=== PATIENT | male | born 1940 | race Caucasian/White ===

== ENCOUNTER 2019-06-18 15:42 | Inpatient (IN) | payer MEDICARE, MEDICAID ==
[~2019-06-18] VITALS: Ht 167.6 cm; Wt 74.9 kg
[2019-06-18] MEDS ORDERED: SODIUM CHLORIDE 0.9% 1,000 ML IV ONE (18:36)
[2019-06-18] MEDS ORDERED: ONDANSETRON HCL 4MG/2ML INJ IV STA (18:36)
[2019-06-18 18:57] LABS: HEMATOCRIT. 38.5 % (42.0-52.0); HEMOGLOBIN. 13.2 g/dL (14.0-18.0); MEAN CORPUSCULAR VOLUME 90.3 fL (80.0-94.0); MEAN PLATELET VOLUME 8.6 fl (7.4-10.4); PLATELET 168 x1000/uL (130-400); RED BLOOD CELL COUNT 4.26 mill/uL (4.7-6.1); RED CELL DISTRIBUTION WIDTH 14.2 % (11.6-14.6)
[2019-06-18 19:03] LABS: CHLORIDE 104 mEq/L (98-107)
[2019-06-18 19:07] LABS: ETHANOL BLOOD < 10 mg/dL
[2019-06-18 19:25] LABS: PLATELET ESTIMATE NORMAL
[2019-06-18 20:55] LABS: CLARITY URINE CLEAR (CLEAR); COLOR URINE YELLOW (YELLOW); KETONES URINE NEGATIVE (NEGATIVE); LEUKOCYTE ESTERASE URINE TRACE (NEGATIVE); NITRITE URINE NEGATIVE (NEGATIVE); OCCULT BLOOD URINE 1+ (NEGATIVE); PH URINE 5.5 (4.5-8.0); PROTEIN URINE 2+ (NEGATIVE); SPECIFIC GRAVITY URINE 1.023 (1.005-1.030); UROBILINOGEN URINE 0.2 E.U./dL (0.2-1.0)
[2019-06-18] MEDS ORDERED: CEFTRIAXONE 1 G PREMIX 50 ML IV ONE (21:00)
[2019-06-18] MEDS ORDERED: VANCOMYCIN 1 G PREMIX 200 ML IV ONE (21:00)
[2019-06-18 21:10] LABS: *AMPHETAMINES SCREEN URINE NEGATIVE (NEGATIVE); *BARBITURATES SCREEN URINE NEGATIVE (NEGATIVE)
[2019-06-18 21:11] LABS: *BENZODIAZEPINES SCREEN URINE NEGATIVE (NEGATIVE); *COCAINE SCREEN URINE NEGATIVE (NEGATIVE); CANNABINOID URINE SCREEN NEGATIVE (NEGATIVE); METHADONE URINE SCREEN NEGATIVE (NEGATIVE); OPIATES URINE SCREEN NEGATIVE (NEGATIVE); PHENCYCLIDINE URINE SCREEN NEGATIVE (NEGATIVE)
[2019-06-18] MEDS ORDERED: SODIUM CHLORIDE 0.9% 500 ML IV ONE (22:45)
[2019-06-18] MEDS ORDERED: DOCUSATE SODIUM 100MG CAPSULE PO PRN (23:30)
[2019-06-18] MEDS ORDERED: ACETAMINOPHEN 325MG TABLET PO PRN (23:30)
[2019-06-18] MEDS ORDERED: ONDANSETRON HCL 4MG/2ML INJ IV PRN (23:30)
[2019-06-18] MEDS ORDERED: CLONIDINE 0.1MG TABLET PO PRN (23:30)
[2019-06-18] MEDS ORDERED: GUAIFENESIN 200MG/10ML SUGAR FREE UDC PO PRN (23:30)
[2019-06-18] MEDS ORDERED: ENOXAPARIN 40MG/0.4ML SYR SUBCUT SCH (23:30)
[2019-06-18] MEDS ORDERED: HYDROCODONE/ACETAMINOPHEN 5/325MG TABLET PO PRN (23:30)
[2019-06-19] VITALS (7 sets, daily range): BP systolic 92–145; BP diastolic 54–76
[2019-06-19] MEDS: SODIUM CHLORIDE 0.45% 1,000 ML IV SCH ×2 (03:51→16:45)
[2019-06-19 09:06] LABS: HEMATOCRIT. 34.7 % (42.0-52.0); HEMOGLOBIN. 12.1 g/dL (14.0-18.0); MEAN CORPUSCULAR VOLUME 89.3 fL (80.0-94.0); MEAN PLATELET VOLUME 9.1 fl (7.4-10.4); PLATELET 149 x1000/uL (130-400); RED BLOOD CELL COUNT 3.89 mill/uL (4.7-6.1); RED CELL DISTRIBUTION WIDTH 14.2 % (11.6-14.6)
[2019-06-19] MEDS: METOPROLOL TARTRATE 25MG TABLET PO SCH ×2 (09:09→21:00)
[2019-06-19] MEDS: ENOXAPARIN 40MG/0.4ML SYR SUBCUT SCH (09:09)
[2019-06-19 09:35] LABS: CHLORIDE 108 mEq/L (98-107)
[2019-06-19] MEDS ORDERED: DEXTROSE 50% WATER 50ML SYRINGE IV PRN (11:15)
[2019-06-19] MEDS: BLOOD SUGAR DIAGNOSTIC STRIP TEST SCH ×3 (11:45→21:41)
[2019-06-19] MEDS: VANCOMYCIN 1 G PREMIX 200 ML IV SCH (11:55)
[2019-06-19] MEDS: INSULIN LISPRO 100 UNITS/ML SUBCUT SCH ×3 (11:59→21:42)
[2019-06-19 14:03] LABS: PLATELET ESTIMATE NORMAL
[2019-06-19] MEDS ORDERED: VANCOMYCIN 1250MG in DEXTROSE 5% WATER 250ML IV SCH (17:00)
[2019-06-20] VITALS: BP 98/56
[2019-06-20 04:00] VITALS: BP 91/61
[2019-06-20] MEDS: SODIUM CHLORIDE 0.45% 1,000 ML IV SCH ×2 (04:13→18:43)
[2019-06-20] MEDS: BLOOD SUGAR DIAGNOSTIC STRIP TEST SCH ×4 (06:18→21:54)
[2019-06-20] MEDS: INSULIN LISPRO 100 UNITS/ML SUBCUT SCH ×4 (06:18→22:15)
[2019-06-20 08:00] VITALS: BP_SYST 128; BP_SYST 139; BP_SYST 142; BP_DIAS 49; BP_DIAS 56; BP_DIAS 62
[2019-06-20] MEDS: ENOXAPARIN 40MG/0.4ML SYR SUBCUT SCH (08:50)
[2019-06-20] MEDS: METOPROLOL TARTRATE 25MG TABLET PO SCH ×2 (08:50→22:15)
[2019-06-20 12:00] VITALS: BP 173/59
[2019-06-20] MEDS: VANCOMYCIN 1 G PREMIX 200 ML IV SCH (12:18)
[2019-06-20 16:00] VITALS: BP 117/46
[2019-06-20 20:00] VITALS: BP 135/62
[2019-06-21] VITALS: BP 136/55
[2019-06-21 04:00] VITALS: BP_SYST 100; BP_SYST 145; BP_DIAS 45; BP_DIAS 47
[2019-06-21] MEDS: BLOOD SUGAR DIAGNOSTIC STRIP TEST SCH ×2 (06:45→12:09)
[2019-06-21] MEDS: INSULIN LISPRO 100 UNITS/ML SUBCUT SCH ×2 (07:15→12:54)
[2019-06-21 08:00] VITALS: BP_SYST 118; BP_SYST 141; BP_SYST 95; BP_DIAS 61; BP_DIAS 62; BP_DIAS 63
[2019-06-21] MEDS: SODIUM CHLORIDE 0.45% 1,000 ML IV SCH (09:10)
[2019-06-21] MEDS: ENOXAPARIN 40MG/0.4ML SYR SUBCUT SCH (09:10)
[2019-06-21] MEDS: METOPROLOL TARTRATE 25MG TABLET PO SCH (09:10)
[2019-06-21] MEDS: VANCOMYCIN 1 G PREMIX 200 ML IV SCH (12:01)
[2019-06-21 14:01] VITALS: BP 141/63
[2019-06-22] MEDS ORDERED: VANCOMYCIN 1 G PREMIX 200 ML IV SCH
== END 2019-06-21 14:53 | disposition home health service (06) | DRG 683 ==
LOC: ER 15:42 → EDSEX 15:42 → 5WST 22:42 → EDBEDREQ 22:51 → ENRESERV 23:07
PROVIDERS: ADMIT Hospitalist; ATTEND Hospitalist
DX: N17.9 Acute kidney failure, unspecified (principal); L03.113 Cellulitis of right upper limb; E11.65 Type 2 diabetes mellitus with hyperglycemia; I11.0 Hypertensive heart disease with heart failure; I50.9 Heart failure, unspecified; I95.1 Orthostatic hypotension; Z86.73 Personal history of transient ischemic attack (TIA), and cerebral infarction without residual deficits
CPT/HCPCS: 36415; 71045; 80053; 80202; 80305; 80320; 81003; 82962; 83036; 83605; 83880; 84145; 84484; 85025; 92610; 93005; 96365; 96367; 96375; 97116; 97162; 99291; J0696; J1650; J1815; J2405; J3370; J7030; J7060; G0480

== ENCOUNTER 2019-08-27 12:53 | Inpatient (IN) | payer MEDICAID, MEDICARE ==
[~2019-08-27] VITALS: Ht 175.3 cm; Wt 86.2 kg
[2019-08-27] MEDS ORDERED: PIPERACILLIN/TAZ 3.375G PREMIX 50 ML IV ONE (14:45)
[2019-08-27] MEDS ORDERED: VANCOMYCIN 1 G PREMIX 200 ML IV ONE (14:45)
[2019-08-27 15:27] LABS: BASOPHILS % 0.6 % (0.0-2.0); EOSINOPHILS % 2.7 % (0.0-5.0); HEMATOCRIT. 41.9 % (42.0-52.0); HEMOGLOBIN. 14.2 g/dL (14.0-18.0); LYMPHOCYTES % 32.1 % (20.0-50.0); MEAN CORPUSCULAR HEMOGLOBIN 30.8 pg (28.0-32.0); MEAN CORPUSCULAR VOLUME 91.1 fL (80.0-94.0); MEAN PLATELET VOLUME 8.9 fl (7.4-10.4); MONOCYTES % 11.8 % (2.0-8.0); NEUTROPHILS % 52.8 % (40.0-76.0); PLATELET 169 x1000/uL (130-400); RED CELL DISTRIBUTION WIDTH 14.8 % (11.6-14.6)
[2019-08-27 15:31] LABS: PROTHROMBIN TIME 10.7 sec (9.6-11.0)
[2019-08-27 15:35] LABS: CHLORIDE 108 mEq/L (98-107)
[2019-08-27] MEDS ORDERED: SODIUM CHLORIDE 0.9% 1000ML BAG (SEPSIS BOLUS) IV ONE (16:00)
[2019-08-27 17:02] LABS: CLARITY URINE CLEAR (CLEAR); COLOR URINE YELLOW (YELLOW); KETONES URINE NEGATIVE (NEGATIVE); LEUKOCYTE ESTERASE URINE NEGATIVE (NEGATIVE); NITRITE URINE NEGATIVE (NEGATIVE); OCCULT BLOOD URINE NEGATIVE (NEGATIVE); PROTEIN URINE NEGATIVE (NEGATIVE); UROBILINOGEN URINE 0.2 E.U./dL (0.2-1.0)
[2019-08-27] MEDS ORDERED: MAGNESIUM/ALUMINUM HYDROXIDE/SIMETHICONE 30ML UDC PO PRN (17:30)
[2019-08-27] MEDS ORDERED: LORAZEPAM 0.5MG TABLET PO PRN (17:30)
[2019-08-27] MEDS ORDERED: DOCUSATE SODIUM 100MG CAPSULE PO PRN (17:30)
[2019-08-27] MEDS ORDERED: ACETAMINOPHEN 325MG TABLET PO PRN (17:30)
[2019-08-27] MEDS ORDERED: HYDROCODONE/ACETAMINOPHEN 5/325MG TABLET PO PRN (17:30)
[2019-08-27] MEDS ORDERED: IPRATROPIUM/ALBUTEROL 0.5-3(2.5)MG/3ML NEB NEB PRN (17:30)
[2019-08-27] MEDS ORDERED: GUAIFENESIN 200MG/10ML SUGAR FREE UDC PO PRN (17:30)
[2019-08-27] MEDS ORDERED: DEXTROSE 50% WATER 50ML SYRINGE IV PRN (17:30)
[2019-08-27] MEDS ORDERED: NA PHOS,M-B/NA PHOS,DI-BA ENEMA 118ML PR PRN (17:30)
[2019-08-27] MEDS ORDERED: ONDANSETRON HCL 4MG/2ML INJ IV PRN (17:30)
[2019-08-27] MEDS ORDERED: ACETAMINOPHEN 650MG SUPP PR PRN ×2 (17:30)
[2019-08-27] MEDS ORDERED: DIPHENHYDRAMINE 50MG/ML VIAL IV PRN (17:30)
[2019-08-27] MEDS ORDERED: INSULIN LISPRO 100 UNITS/ML SUBCUT SCH (18:20)
[2019-08-27] MEDS ORDERED: LEVOFLOXACIN 500MG PREMIX 100 ML IV NR (19:30)
[2019-08-27] MEDS: SODIUM CHLORIDE 0.45% 1,000 ML IV SCH (19:42)
[2019-08-27] MEDS ORDERED: SODIUM CHLORIDE 0.9% 1,000 ML IV ONE ×2 (19:48→21:47)
[2019-08-27] MEDS: FAMOTIDINE 20MG TABLET PO SCH (21:00)
[2019-08-27] MEDS: BLOOD SUGAR DIAGNOSTIC STRIP TEST SCH (21:00)
[2019-08-27] MEDS ORDERED: NOREPINEPHRINE 4MG/250ML PMX 250 ML IV PRN (21:30)
[2019-08-28 05:31] LABS: BASOPHILS % 0.5 % (0.0-2.0); EOSINOPHILS % 2.7 % (0.0-5.0); HEMATOCRIT. 37.6 % (42.0-52.0); HEMOGLOBIN. 12.9 g/dL (14.0-18.0); MEAN CORPUSCULAR HEMOGLOBIN 31.4 pg (28.0-32.0); MEAN CORPUSCULAR VOLUME 91.3 fL (80.0-94.0); MEAN PLATELET VOLUME 8.7 fl (7.4-10.4); MONOCYTES % 11.9 % (2.0-8.0); NEUTROPHILS % 57.9 % (40.0-76.0); PLATELET 129 x1000/uL (130-400); RED BLOOD CELL COUNT 4.12 mill/uL (4.7-6.1)
[2019-08-28 05:39] LABS: CHLORIDE 116 mEq/L (98-107)
[2019-08-28 05:50] LABS: HDL CHOLESTEROL 35 mg/dL (40-59); LDL CHOLESTEROL 115 mg/dL (5-100); T4 FREE 1.18 ng/dL (0.76-1.46)
[2019-08-28] MEDS: BLOOD SUGAR DIAGNOSTIC STRIP TEST SCH ×4 (09:38→20:02)
[2019-08-28] MEDS: CLONIDINE 0.1MG TABLET PO PRN ×2 (14:03→20:33)
[2019-08-28] MEDS ORDERED: METF-416 MT (15:42)
[2019-08-28] MEDS ORDERED: LISI-604 MT (15:42)
[2019-08-28] MEDS ORDERED: MECL-159 MT (15:42)
[2019-08-28] MEDS ORDERED: METO25TA6 MT (15:42)
[2019-08-28 16:00] VITALS: BP 162/51
[2019-08-28 16:15] VITALS: BP 148/68
[2019-08-28] MEDS: ENOXAPARIN 40MG/0.4ML SYR SUBCUT SCH (16:22)
[2019-08-28] MEDS: INSULIN LISPRO 100 UNITS/ML SUBCUT SCH ×2 (16:29→20:02)
[2019-08-28] MEDS: VANCOMYCIN 1250MG in DEXTROSE 5% WATER 250ML IV SCH (17:04)
[2019-08-28] MEDS: LEVOFLOXACIN 500MG PREMIX 100 ML IV SCH (19:54)
[2019-08-28] MEDS: FAMOTIDINE 20MG TABLET PO SCH (19:55)
[2019-08-28 20:00] VITALS: BP 166/67
[2019-08-28] MEDS ORDERED: LEVOFLOXACIN 500MG PREMIX 100 ML IV SCH (20:00)
[2019-08-29] VITALS (8 sets, daily range): BP systolic 97–161; BP diastolic 46–102
[2019-08-29 00:22] LABS: *AMPHETAMINES SCREEN URINE NEGATIVE (NEGATIVE); *BARBITURATES SCREEN URINE NEGATIVE (NEGATIVE); *BENZODIAZEPINES SCREEN URINE NEGATIVE (NEGATIVE); *COCAINE SCREEN URINE NEGATIVE (NEGATIVE); CANNABINOID URINE SCREEN NEGATIVE (NEGATIVE); OPIATES URINE SCREEN NEGATIVE (NEGATIVE); PHENCYCLIDINE URINE SCREEN NEGATIVE (NEGATIVE)
[2019-08-29 00:23] LABS: METHADONE URINE SCREEN NEGATIVE (NEGATIVE)
[2019-08-29] MEDS: SODIUM CHLORIDE 0.45% 1,000 ML IV SCH ×2 (00:38→11:01)
[2019-08-29] MEDS: INSULIN LISPRO 100 UNITS/ML SUBCUT SCH ×4 (06:41→21:16)
[2019-08-29] MEDS: BLOOD SUGAR DIAGNOSTIC STRIP TEST SCH ×4 (06:41→21:18)
[2019-08-29] MEDS: ENOXAPARIN 40MG/0.4ML SYR SUBCUT SCH (08:50)
[2019-08-29] MEDS: VANCOMYCIN 1250MG in DEXTROSE 5% WATER 250ML IV SCH (12:45)
[2019-08-29] MEDS: DEXT 5%/0.45% NACL 1000ML 1,000 ML IV SCH (15:09)
[2019-08-29] MEDS: LEVOFLOXACIN 500MG PREMIX 100 ML IV SCH (20:38)
[2019-08-29] MEDS: FAMOTIDINE 20MG TABLET PO SCH (20:40)
[2019-08-30] VITALS: BP 185/68
[2019-08-30] MEDS: HYDRALAZINE HCL 25MG TABLET PO PRN ×2 (00:21→16:35)
[2019-08-30] MEDS: DEXT 5%/0.45% NACL 1000ML 1,000 ML IV SCH ×2 (03:31→16:58)
[2019-08-30 04:00] VITALS: BP 132/91
[2019-08-30] MEDS: BLOOD SUGAR DIAGNOSTIC STRIP TEST SCH ×4 (06:36→20:46)
[2019-08-30 07:21] LABS: BASOPHILS % 0.5 % (0.0-2.0); EOSINOPHILS % 2.9 % (0.0-5.0); HEMATOCRIT. 34.8 % (42.0-52.0); HEMOGLOBIN. 12.2 g/dL (14.0-18.0); LYMPHOCYTES % 30.6 % (20.0-50.0); MEAN CORPUSCULAR HEMOGLOBIN 30.8 pg (28.0-32.0); MEAN CORPUSCULAR VOLUME 88.1 fL (80.0-94.0); MEAN PLATELET VOLUME 8.9 fl (7.4-10.4); MONOCYTES % 12.2 % (2.0-8.0); NEUTROPHILS % 53.8 % (40.0-76.0); PLATELET 137 x1000/uL (130-400); RED BLOOD CELL COUNT 3.95 mill/uL (4.7-6.1); RED CELL DISTRIBUTION WIDTH 14.6 % (11.6-14.6)
[2019-08-30 07:42] LABS: C REACTIVE PROTEIN QUANT 8.4 mg/L (0.0-3.0)
[2019-08-30] MEDS: INSULIN LISPRO 100 UNITS/ML SUBCUT SCH ×4 (07:44→20:50)
[2019-08-30 08:00] VITALS: BP 95/59
[2019-08-30] MEDS: ENOXAPARIN 40MG/0.4ML SYR SUBCUT SCH (08:53)
[2019-08-30] MEDS: LEVOFLOXACIN 500MG TABLET PO SCH (10:55)
[2019-08-30] MEDS ORDERED: IOHEXOL-350 100 ML BOTTLE ONE (11:48)
[2019-08-30 12:00] VITALS: BP 161/48
[2019-08-30 16:00] VITALS: BP 166/70
[2019-08-30 20:00] VITALS: BP 147/69
[2019-08-30] MEDS: FAMOTIDINE 20MG TABLET PO SCH (20:46)
[2019-08-31] VITALS: BP 156/56
[2019-08-31] MEDS: VANCOMYCIN 1250MG in DEXTROSE 5% WATER 250ML IV SCH (01:24)
[2019-08-31 04:00] VITALS: BP 166/53
[2019-08-31] MEDS: HYDRALAZINE HCL 25MG TABLET PO PRN (06:25)
[2019-08-31] MEDS: BLOOD SUGAR DIAGNOSTIC STRIP TEST SCH ×4 (06:48→17:45)
[2019-08-31] MEDS: DEXT 5%/0.45% NACL 1000ML 1,000 ML IV SCH ×2 (06:50→21:36)
[2019-08-31] MEDS: INSULIN LISPRO 100 UNITS/ML SUBCUT SCH ×4 (07:50→21:52)
[2019-08-31 08:13] LABS: BASOPHILS % 0.5 % (0.0-2.0); EOSINOPHILS % 3.5 % (0.0-5.0); HEMATOCRIT. 37.8 % (42.0-52.0); HEMOGLOBIN. 13.2 g/dL (14.0-18.0); LYMPHOCYTES % 30.3 % (20.0-50.0); MEAN CORPUSCULAR HEMOGLOBIN 30.8 pg (28.0-32.0); MEAN CORPUSCULAR VOLUME 88.6 fL (80.0-94.0); MEAN PLATELET VOLUME 9.2 fl (7.4-10.4); NEUTROPHILS % 52.7 % (40.0-76.0); PLATELET 140 x1000/uL (130-400); RED BLOOD CELL COUNT 4.27 mill/uL (4.7-6.1); RED CELL DISTRIBUTION WIDTH 14.5 % (11.6-14.6)
[2019-08-31] MEDS: ENOXAPARIN 40MG/0.4ML SYR SUBCUT SCH (09:38)
[2019-08-31] MEDS: LEVOFLOXACIN 500MG TABLET PO SCH (10:03)
[2019-08-31] MEDS ORDERED: HEPARIN SODIUM 1,000 UNIT/1ML VIAL IV ONE (10:26)
[2019-08-31] MEDS ORDERED: MIDAZOLAM HCL 2 MG/2 ML VIAL ONE (16:23)
[2019-08-31] MEDS ORDERED: IODIXANOL 320MG/ML 100 ML BOTTLE IV ONE (16:24)
[2019-08-31] MEDS ORDERED: LIDOCAINE HCL 1% 20ML VIAL (Pyxis) INJ ONE (16:24)
[2019-08-31] MEDS ORDERED: FENTANYL CITRATE/PF 50MCG/ML 2ML VIAL ONE (16:24)
[2019-08-31] MEDS ORDERED: IOHEXOL-300 100 ML BOTTLE ONE (16:51)
[2019-08-31] MEDS: CLOPIDOGREL 75MG TABLET PO SCH (18:58)
[2019-08-31 20:00] VITALS: BP 112/74
[2019-08-31] MEDS: VANCOMYCIN 1 G PREMIX 200 ML IV SCH (21:21)
[2019-08-31] MEDS: FAMOTIDINE 20MG TABLET PO SCH (21:21)
[2019-09-01] VITALS: BP 108/61
[2019-09-01 04:00] VITALS: BP 154/60
[2019-09-01] MEDS: BLOOD SUGAR DIAGNOSTIC STRIP TEST SCH ×2 (06:28→11:47)
[2019-09-01] MEDS: INSULIN LISPRO 100 UNITS/ML SUBCUT SCH ×2 (07:50→11:48)
[2019-09-01 08:00] VITALS: BP 104/63
[2019-09-01] MEDS: CLOPIDOGREL 75MG TABLET PO SCH (08:49)
[2019-09-01] MEDS: ENOXAPARIN 40MG/0.4ML SYR SUBCUT SCH (08:49)
[2019-09-01] MEDS: LEVOFLOXACIN 500MG TABLET PO SCH (10:00)
[2019-09-01 12:00] VITALS: BP 112/66
[2019-09-01] MEDS ORDERED: CLOP75TA4 MT (12:52)
[2019-09-01] MEDS ORDERED: LEVO500T2 MT (12:52)
[2019-09-01] MEDS: VANCOMYCIN 1 G PREMIX 200 ML IV SCH (13:03)
[2019-09-01 14:39] VITALS: BP 112/66
[2019-09-01 16:00] VITALS: BP 165/65
== END 2019-09-01 17:00 | disposition home health service (06) | DRG 253 ==
LOC: ER 12:53 → 6EST 16:42 → EDBEDREQ 16:43 → SUPCPDRO 16:49 → ENRESERV 08-28 08:40 → CANRESERV 08-28 08:47 → EDBEDREQSVC 08-28 08:58 → ENRESERV 08-28 13:38
PROVIDERS: ADMIT Internal Medicine; ATTEND Internal Medicine
PROC: 047N3ZZ Dilation of Left Popliteal Artery, Percutaneous Approach (ICD-10-PCS; principal; 2019-08-31)
PROC: B41G1ZZ Fluoroscopy of Left Lower Extremity Arteries using Low Osmolar Contrast (ICD-10-PCS; 2019-08-31)
DX: T82.856A Stenosis of peripheral vascular stent, initial encounter (principal); L03.116 Cellulitis of left lower limb; E87.2 Acidosis; E87.1 Hypo-osmolality and hyponatremia; E11.621 Type 2 diabetes mellitus with foot ulcer; I70.202 Unspecified atherosclerosis of native arteries of extremities, left leg; I12.9 Hypertensive chronic kidney disease with stage 1 through stage 4 chronic kidney disease, or unspecified chronic kidney disease; E11.22 Type 2 diabetes mellitus with diabetic chronic kidney disease; E11.51 Type 2 diabetes mellitus with diabetic peripheral angiopathy without gangrene; Y83.8 Other surgical procedures as the cause of abnormal reaction of the patient, or of later complication, without mention of misadventure at the time of the procedure; L97.529 Non-pressure chronic ulcer of other part of left foot with unspecified severity; N18.9 Chronic kidney disease, unspecified; Z86.73 Personal history of transient ischemic attack (TIA), and cerebral infarction without residual deficits; Z79.4 Long term (current) use of insulin; Z79.899 Other long term (current) drug therapy; Z88.0 Allergy status to penicillin; Y92.89 Other specified places as the place of occurrence of the external cause
CPT/HCPCS: 36246; 36415; 71045; 73630; 73700; 75635; 75710; 80048; 80053; 80061; 80202; 80305; 81003; 82962; 83036; 83605; 84439; 84443; 85025; 85347; 85651; 86140; 93005; 93306; 93923; 93970; 97116; 97162; 99291; C1725; C1760; C1769; C1893; C1894; J1644; J1650; J1815; J1956; J2250; J2543; J3010; J3370; J3490; J7030; J7060; Q9967

== ENCOUNTER 2021-10-01 11:36 | Emergency (ER) | payer OTHER, MEDICAID ==
[~2021-10-01] VITALS: Ht 180.3 cm; Wt 92.2 kg
[~2021-10-01 11:36] MED LIST: CLOP-31 MT; LEVO500T2 MT; LISI20TA31 MT; MECL-159 MT; METF-416 MT; METO25TA6 MT
[2021-10-01 14:53] VITALS: BP 120/80
== END 2021-10-01 14:58 | disposition home or self-care (01) ==
LOC: ER 13:10
DX: S43.492A Other sprain of left shoulder joint, initial encounter (principal); W18.39XA Other fall on same level, initial encounter; Y93.89 Activity, other specified; Y92.89 Other specified places as the place of occurrence of the external cause; Y99.8 Other external cause status; E11.9 Type 2 diabetes mellitus without complications; I10 Essential (primary) hypertension; Z79.899 Other long term (current) drug therapy
CPT/HCPCS: 73030; 73060; 99284; A4565